=== PATIENT | male | born 1970 | race Two or more races ===

== ENCOUNTER 2019-10-06 12:11 | Emergency (ER) | payer OTHER ==
[~2019-10-06] VITALS: Ht 175.3 cm; Wt 131.5 kg
[2019-10-06] MEDS ORDERED: ACID REDUCER20 M1 (12:42)
[2019-10-06] MEDS ORDERED: STOOL SOFTENER50 MG (12:42)
[2019-10-06] MEDS ORDERED: MICROZIDE12.5 MG (12:42)
[2019-10-06] MEDS ORDERED: KETO10TA2 PO (13:25)
== END 2019-10-06 14:01 | disposition home or self-care (01) ==
LOC: ER 12:11
DX: S80.01XA Contusion of right knee, initial encounter (principal); M12.561 Traumatic arthropathy, right knee; W10.8XXA Fall (on) (from) other stairs and steps, initial encounter; Y93.89 Activity, other specified; Y92.89 Other specified places as the place of occurrence of the external cause; Y99.8 Other external cause status

== ENCOUNTER 2025-02-24 09:47 | Emergency (ER) | payer OTHER ==
[~2025-02-24] VITALS: Ht 175.3 cm; Wt 126.1 kg
[~2025-02-24 09:47] MED LIST: ACID REDUCER20 M1; KETO10TA2 PO; MICROZIDE12.5 MG; STOOL SOFTENER50 MG
[2025-02-24] MEDS ORDERED: COZAAR25 MG (10:30)
[2025-02-24] MEDS ORDERED: VAZALORE81 MG (10:31)
[2025-02-24] MEDS ORDERED: LIPITOR20 MG (10:31)
[2025-02-24] MEDS ORDERED: MOUNJARO2.5 MG/0.5 (10:31)
[2025-02-24] MEDS ORDERED: 0.9 % SODIUM CHLORIDE 1,000 ML IV STA (10:41)
[2025-02-24 11:20] LABS: HEMATOCRIT 47.6 % (39.0-48.0); MEAN CELL VOLUME 88.9 fL (80.0-100.00); MEAN CORPUSCULAR HEMOGLOBIN 29.9 pg (27.00-32.0); MEAN CORPUSCULAR HGB CONC 33.7 g/dl (32.0-36.0); PLATELET COUNT 200 K/uL (150-450); RED BLOOD COUNT 5.35 M/uL (4.00-6.00); RED CELL DISTRIBUTION WIDTH 14.7 % (11.5-14.5)
[2025-02-24 11:37] LABS: PH,URINE 5.5 (5.0-8.0); URINE APPEARANCE Clear; URINE BILIRRUBIN Negative (NEGATIVE); URINE BLOOD Moderate; URINE COLOR Dark Yellow; URINE GLUCOSE Negative (NEGATIVE); URINE KETONE Negative (NEGATIVE); URINE LEUKOCYTE Trace; URINE NITRATE Negative; URINE PROTEIN 30 (NEGATIVE); URINE UROBILINOGEN 0.2 E.U./dl
[2025-02-24 11:39] LABS: CALCIUM 8.4 mg/dL (8.5-10.1); CREATININE SERUM 0.8 mg/dL (0.70-1.30); GFR 101.12; POTASSIUM 3.27 mEq/L (3.5-5.1)
[2025-02-24 11:40] LABS: URINE BACTERIA 24.4 uL (0.0-1933); URINE EPITHELIAL CELLS 11.2 uL (0.0-38.8); URINE RBC 115.9 uL (0.0-20.8); URINE WBC 18.3 uL (0.0-23.2)
[2025-02-24] MEDS ORDERED: FAMOTIDINE/PF 20 MG/2 ML VIAL IV ONE (12:00)
[2025-02-24] MEDS ORDERED: LOPERAMIDE HCL 2 MG CAPSULE PO ONE (13:21)
== END 2025-02-24 14:50 | disposition home or self-care (01) ==
LOC: ER 09:48
PROVIDERS: Emergency Medicine
DX: K52.9 Noninfective gastroenteritis and colitis, unspecified (principal); E11.9 Type 2 diabetes mellitus without complications; Z79.84 Long term (current) use of oral hypoglycemic drugs; I10 Essential (primary) hypertension